=== PATIENT | male | born 1955 | race Caucasian/White ===

== ENCOUNTER 2025-07-02 06:14 | Day surgery (SDC) | payer OTHER ==
[~2025-07-02] VITALS: Ht 177.8 cm; Wt 87.7 kg
[2025-07-02] MEDS ORDERED: SODIUM CHLORIDE 0.9% 1,000 ML ONE (06:34)
[2025-07-02] MEDS ORDERED: FentaNYL CITRATE PF 100 MCG/2 ML VIAL ONE (08:29)
[2025-07-02] MEDS: SODIUM CHLORIDE 0.9% 1,000 ML IV ONE (08:30)
[2025-07-02] MEDS ORDERED: MIDAZOLAM HCL 2 MG/2 ML VIAL ONE (08:30)
[2025-07-02 08:46] LABS: GLUCOMETER DEV NAME(LOC) SDS.; GLUCOSE,POINT OF CARE 111 MG/DL (70-110)
[2025-07-02 09:50] VITALS: PULSE 70; RESP 16; O2SAT 100
[2025-07-02] MEDS ORDERED: BUSP5TAB20 PO (11:01)
[2025-07-02] MEDS ORDERED: TRAZ-257 PO (11:01)
[2025-07-02] MEDS ORDERED: OMEP-148 PO (11:01)
[2025-07-02] MEDS ORDERED: DICY20TA95 PO (11:01)
[2025-07-02] MEDS ORDERED: SUCR1TAB2 PO (11:01)
[2025-07-02] MEDS ORDERED: VONO10TA PO (11:01)
[2025-07-02] MEDS ORDERED: DULO30CA62 PO (11:01)
[2025-07-02] MEDS ORDERED: DICL100G60 TP (11:01)
[2025-07-02] MEDS ORDERED: LISI-894 PO (11:01)
[2025-07-02] MEDS ORDERED: LINA5TAB PO (11:01)
[2025-07-02] MEDS ORDERED: GABA-1181 PO (11:01)
[2025-07-02] MEDS ORDERED: FAMO20 PO (11:01)
[2025-07-02] MEDS ORDERED: METO25XL PO (11:01)
[2025-07-02] MEDS ORDERED: RIVA20TA PO (11:01)
[2025-07-02] MEDS ORDERED: PRED-729 PO (11:01)
[2025-07-02] MEDS ORDERED: METF-910 PO (11:01)
[2025-07-02] MEDS ORDERED: CETI10TA77 PO (11:01)
[2025-07-02] MEDS ORDERED: AMLO2.5T96 PO (11:01)
[2025-07-02] MEDS ORDERED: ONDA-104 PO (11:01)
[2025-07-02] MEDS ORDERED: METH-659 PO (11:01)
[2025-07-02] MEDS ORDERED: MONT-35 PO (11:01)
[2025-07-02] MEDS ORDERED: ALBU18HF12 IH (11:01)
[2025-07-02] MEDS ORDERED: SERT-162 PO (11:01)
[2025-07-02] MEDS ORDERED: ATOR10TA PO (11:01)
[2025-07-02] MEDS ORDERED: BENZOCAINE 20% 50 MCG/SPRAY 57 GM ONE (12:00)
[2025-07-02] MEDS ORDERED: LIDOCAINE 2% 11 ML JELLY ONE (12:00)
[2025-07-02] MEDS ORDERED: LIDOCAINE 4% 50 ML SOLUTION ONE (12:00)
[2025-07-02] MEDS ORDERED: ALBUTEROL SULFATE 2.5 MG/0.5 ML NEB SOLUTION NEB ONE (12:00)
== END 2025-07-02 13:05 | disposition home or self-care (01) ==
LOC: SDS 06:14
PROVIDERS: ATTEND Internal Medicine Critical Care Medicine
DX: J38.4 Edema of larynx (principal); B37.0 Candidal stomatitis; R05.3 Chronic cough; R06.2 Wheezing; R73.09 Other abnormal glucose
CPT/HCPCS: 31623; 82962; 87206; 87101; 87220; 87070; 88108; 31624; 94640; 71045; 87015; J3010; J2250; J2919; J7030; J7613; Z7610